=== PATIENT | female | born 1990 | race Caucasian/White ===

== ENCOUNTER 2019-07-17 08:02 | Outpatient (CLI) | payer BC ==
--- NOTE | 2019-07-17 10:54 | MRI ---
MRI BRAIN WITH AND WITHOUT IV CONTRAST: HISTORY: Migraine without aura and without status migrainosus. FINDINGS: No restricted diffusion is seen. No evidence of infarct, hemorrhage, mass, midline shift or abnormal extraaxial fluid collections is seen. The ventricular size is normal and the basilar cisterns are pat ent. No abnormal post contrast enhancement is seen. No signal abnormalities are noted on the highly s ensitive FLAIR images. No blood products are seen on the gradient echo sequences. The paranasal sinus es and mastoid air cells are well aerated. IMPRESSION: Normal examination. POS: [facility]
== END 2019-07-17 08:03 | disposition home or self-care (01) ==
LOC: SCSMRI 08:02
PROVIDERS: ATTEND Nurse Practitioner Acute Care
DX: G43.009 Migraine without aura, not intractable, without status migrainosus (principal)
CPT/HCPCS: 70553